=== PATIENT | male | born 1980 | race Hispanic/Latino ===

== ENCOUNTER 2017-08-16 13:52 | Outpatient (CLI) | payer OTHER | END 2017-08-16 13:53 | disposition home or self-care (01) | LOC: BICRAD 13:52 | DX: S69.92XA Unspecified injury of left wrist, hand and finger(s), initial encounter (principal); S52.512A Displaced fracture of left radial styloid process, initial encounter for closed fracture ==

== ENCOUNTER 2017-08-20 15:28 | Emergency (ER) | payer SELFPAY ==
--- NOTE | 2017-08-20 16:43 | RAD ---
LEFT HAND: 08/20/17 Three views. INDICATIONS: Hand swelling and pain. There are fractures of the distal radius and ulna. There is a transverse mildly comminuted fracture o f the distal radius with involvement of the articular surface. There is associated fracture of the ul stepan styloid. The carpals, metacarpals and phalanges appear intact. IMPRESSION: Fracture of the distal radius and ulna. POS: [facility]
--- NOTE | 2017-08-20 16:49 | RAD ---
LEFT WRIST: 08/20/17 Three views. HISTORY: Injury with pain and swelling of the wrist. There s a transverse, mildly comminuted fracture of the distal radius. Fracture lines involve the art icular surface. There is associated fracture of the ulnar styloid. The carpals appear intact. IMPRESSION: Fracture distal radius and ulna. There is mild comminution of the dorsal aspect of the distal radial fracture with involvement of the articular surface. POS: [facility]
== END 2017-08-20 19:08 | disposition home or self-care (01) ==
LOC: ERS 15:28
DX: S52.502A Unspecified fracture of the lower end of left radius, initial encounter for closed fracture (principal); S52.612A Displaced fracture of left ulna styloid process, initial encounter for closed fracture; X58.XXXA Exposure to other specified factors, initial encounter
CPT/HCPCS: 29125

== ENCOUNTER 2019-01-13 13:35 | Emergency (ER) | payer SELFPAY ==
[2019-01-13] MEDS ORDERED: Lidocaine 1% (PF) 30 ML VIAL ONE (13:52)
[2019-01-13] MEDS ORDERED: Lidocaine 1% w/Epinephrine 1:100K 20 ML VIAL ONE (13:52)
[2019-01-13] MEDS ORDERED: Adacel (T-DAP) 0.5 ML SYRINGE ONE (13:58)
[2019-01-13] MEDS ORDERED: HYDROcodone/Acetaminophen 10/325 mg Tablet ONE (14:16)
[2019-01-13] MEDS ORDERED: CEFAZOLIN 1 GM VIAL ONE (14:16)
[2019-01-13] MEDS ORDERED: Sterile Water 10 ML ONE (14:17)
--- NOTE | 2019-01-13 14:40 | RAD ---
4 views right knee: 01/13/2019 COMPARISON: None HISTORY: Laceration, trauma, pain FINDINGS: Lucency overlies the soft tissues along the lateral and anterior aspect of the distal thigh . No associated radiopaque foreign body. No large knee joint effusion, displaced fracture, or evidence of dislocation is seen IMPRESSION: Prominent soft tissue laceration of the distal thigh laterally. No associated fracture or dislocation appreciated.
== END 2019-01-13 16:35 | disposition home or self-care (01) ==
LOC: ERS 13:35
DX: S71.111A Laceration without foreign body, right thigh, initial encounter (principal); Z23 Encounter for immunization; W29.3XXA Contact with powered garden and outdoor hand tools and machinery, initial encounter
CPT/HCPCS: 90715; J0690; J2001

== ENCOUNTER 2019-01-27 08:24 | Emergency (ER) | payer SELFPAY | END 2019-01-27 08:50 | disposition home or self-care (01) | LOC: ERS 08:24 | DX: S81.011D Laceration without foreign body, right knee, subsequent encounter (principal); W29.3XXD Contact with powered garden and outdoor hand tools and machinery, subsequent encounter ==

== ENCOUNTER 2025-02-01 06:19 | Day surgery (SDC) | payer SELFPAY ==
[2025-01-31 15:16] VITALS: BMI 29.0
[2025-02-01] MEDS ORDERED: Ondansetron PF 4 MG/2 ML Vial ONE (06:43)
[2025-02-01] MEDS ORDERED: fentaNYL PF 100 MCG/2 ML SYRINGE ONE ×4 (06:44→09:49)
[2025-02-01] MEDS ORDERED: Acetaminophen 500 MG TAB ONE (06:52)
[2025-02-01] MEDS ORDERED: SUGAMMADEX SODIUM 200 MG/2 ML VIAL ONE (07:13)
[2025-02-01] MEDS ORDERED: Rocuronium Bromide 10 MG/ML (10ML VIAL) ONE (07:44)
[2025-02-01] MEDS ORDERED: PROPOFOL 200 MG/20 ML VIAL ONE (07:44)
[2025-02-01] MEDS ORDERED: Ropivacaine 0.5% HCl/PF (150 MG/30 ML VIAL) ONE (07:48)
[2025-02-01] MEDS ORDERED: HYDROcodone/Acetaminophen 5/325 mg Tablet ONE (11:26)
== END 2025-02-01 12:01 | disposition home or self-care (01) ==
LOC: SDC 06:19
PROVIDERS: ATTEND Orthopaedic Surgery
PROC: 0PSH04Z Reposition Right Radius with Internal Fixation Device, Open Approach (ICD-10-PCS; principal; 2025-02-01)
DX: S52.571A Other intraarticular fracture of lower end of right radius, initial encounter for closed fracture (principal); W11.XXXA Fall on and from ladder, initial encounter
CPT/HCPCS: C1713; J1100; J2405; J2704; J2795